=== PATIENT | female | born 1970 | race Hispanic/Latino ===

== ENCOUNTER 2025-06-21 12:52 | Outpatient (CLI) | payer BC | END 2025-06-21 12:53 | disposition home or self-care (01) | LOC: CSHMAMMO 12:52 | PROVIDERS: ATTEND Internal Medicine Hematology & Oncology | DX: Z08 Encounter for follow-up examination after completed treatment for malignant neoplasm (principal); Z85.3 Personal history of malignant neoplasm of breast; D70.1 Agranulocytosis secondary to cancer chemotherapy; D50.0 Iron deficiency anemia secondary to blood loss (chronic) | CPT/HCPCS: 77066; G0279 ==